=== PATIENT | male | born 1940 | race Caucasian/White ===

== ENCOUNTER 2017-05-06 13:24 | Emergency (ER) | payer OTHER ==
[~2017-05-06] VITALS: Ht 177.8 cm; Wt 79.4 kg
[2017-05-06 14:55] VITALS: BP 106/64
== END 2017-05-06 14:56 | disposition home or self-care (01) ==
LOC: ER 13:24
DX: S16.1XXA Strain of muscle, fascia and tendon at neck level, initial encounter (principal); K21.9 Gastro-esophageal reflux disease without esophagitis; E78.00 Pure hypercholesterolemia, unspecified; Z98.890 Other specified postprocedural states; V89.2XXA Person injured in unspecified motor-vehicle accident, traffic, initial encounter; Y93.89 Activity, other specified; Y92.411 Interstate highway as the place of occurrence of the external cause; Y99.8 Other external cause status

== ENCOUNTER 2019-06-10 12:56 | Day surgery (SDC) | payer OTHER ==
[2019-05-27 13:22] LABS: HEMATOCRIT 39.9 % (42.0-52.0); HEMOGLOBIN 13.3 gm/dL (14.0-18.0); MCH 32.4 pg (26.0-34.0); MCHC 33.3 g/dL (28.0-37.0); MCV 97.4 fL (80.0-100.0); RBC 4.09 mil/uL (4.50-6.00); RDW 13.8 % (10.5-14.5)
[2019-05-27 13:28] LABS: URINE BILIRUBIN NEGATIVE (Negative); URINE BLOOD TRACE (Negative); URINE CLARITY CLEAR; URINE COLOR YELLOW; URINE GLUCOSE-RANDOM* NEGATIVE (Negative); URINE KETONES NEGATIVE (Negative); URINE LEUKOCYTES-REFLEX NEGATIVE (Negative); URINE NITRITE-REFLEX NEGATIVE (Negative); URINE PROTEIN (DIPSTICK) NEGATIVE (Negative); URINE SPECIFIC GRAVITY <= 1.005 (1.005-1.035); URINE UROBILINOGEN 0.2 E.U./dl (0.2-1.0)
[2019-05-27 13:30] LABS: ALBUMIN 4.1 g/dL (3.4-5.0); CALCIUM 9.1 mg/dL (8.5-10.1); POTASSIUM 4.9 mmol/L (3.5-5.1)
[2019-05-27 13:39] LABS: INR 1.1
[~2019-06-10] VITALS: Ht 180.3 cm; Wt 76.7 kg
[~2019-06-10 12:56] MED LIST: BIOTIN10 MG PO; CELEBREX 200 M200 M1 PO; CIALIS5 MG PO; COZAAR 50 MG TA50 M1 PO; MELATONIN3 M1 PO; MULTIVITAMINS PO; PROBIOTIC1 EAC1 PO; PROTONIX40 M1 PO; RAPAFLO8 MG PO; REPATHA SY140 MG/1 M SUBQ; VITAMIN B-12500 MCG PO; VITAMIN E400 UNIT PO
[2019-06-10 14:23] VITALS: BP 135/52
[2019-06-10 18:40] VITALS: BP 138/60
--- NOTE | 2019-06-10 20:01 | NUR ---
PATIENT ARRIVED ON UNIT ROOM 447 FROM POST OP AT 1810. V.S. 97.3 17 65 138/60 O2 SAT = 97% ROOM AIR. DIET IS REGULAR PT GIVEN DINNER AND WATER IN PITCHER. PICCO DRESSING TO RIGHT KNEE HAS SCD'S AND TOYA HOSE IN PLACE. PT WGT = 169 LBS AND HEIGHT = 5'11". PT PLEASANT AND COOPERATIVE WITH CARE. NO RESP DISTRESS NO PAIN. AT BEDSIDE.
[2019-06-11 00:01] VITALS: BP 123/48
[2019-06-11 04:24] VITALS: BP 132/52
--- NOTE | 2019-06-11 04:55 | NUR ---
ASSUMED CARE OF PT @1900 PT ASSESSED AT START OF SHIFT A&OX4. ADM DONE AND CHARTED. PT ORIENTED TO THE ROOM. DRESSING INTACT AND ICE PACK IN PLACE. SCD'S ON FOR THE NIGHT. PAIN MEDS GIVEN FOR PAIN SEE EMAR. URINAL @BEDSIDE FOR THE NIGHT. FALL PREC IN PLACE AND CALL LIGHT WITHIN REACH WILL CONT WITH POC TILL EOS.
[2019-06-11 06:28] LABS: HEMATOCRIT 38.6 % (42.0-52.0); HEMOGLOBIN 12.9 gm/dL (14.0-18.0); MCH 32.5 pg (26.0-34.0); MCHC 33.3 g/dL (28.0-37.0); MCV 97.6 fL (80.0-100.0); RBC 3.96 mil/uL (4.50-6.00); RDW 13.4 % (10.5-14.5); WBC 9.6 thou/uL (4.0-11.0)
[2019-06-11] MEDS ORDERED: NEURONTIN 300300 M1 PO (08:22)
[2019-06-11] MEDS ORDERED: ASPIR 8181 MG PO (08:22)
[2019-06-11 10:56] VITALS: BP 132/52
--- NOTE | 2019-06-11 11:23 | NUR ---
Consult [id number] is completed. Patient and were in room. Patient is doing well and is very satisified with his procedure and his stay here. Patient was visited a little earlier by our Design Sales Consultant as patient is Sikhism.
--- NOTE | 2019-06-11 11:53 | NUR ---
DISCHARGE PAPERS GONE OVER WITH PATIENT,SIGNED AND COPY IN CHARGE. RX'S GIVEN IV ACSESS DCD. INFO ON POLAR PACK AND PICCO DRESSING GIVEN TO PATIENT SPOUSE IN ROOM. PT'S RIGHT KNEE DRESSING INTACT. ALL BELONGINGS PACKED AND SENT WITH PATIENT.
[2019-06-11 12:23] VITALS: BP 132/52
--- NOTE | 2019-06-11 13:37 | NUR ---
ASSESSMENT-PT LIVES AT HOME WITH HIS SPOUSE WHO IS IN GOOD HEALTH AND ABLE TO ASSIST HIM AT HOME. PT HAS A ROLLER WALKER AT HOME ALREADY. PT PLANS TO GO TO OUTPT THERAPY AT [facility] IN [place] AND HE PLANS TO CALL THEM TO SET-UP APPTS SOON HE GETS HOME. PT/ VOICE NO DC NEEDS AT THIS TIME. NO DC NEEDS ANTICIPATED.
--- NOTE | 2019-06-23 12:13 | O ---
[facility] [place] [address] OPERATIVE REPORT Name: SOCORRO RANGEL [place] [facility] [place] [id number] Admission: 06/10/19 Attend Phys: Regan Paulson MD Discharge: 06/11/19 Date of : 36 Report #: [id number] THIS REPORT FOR: //name// CC: Vaughn Paulson DATE OF SERVICE: 06/10/2019 PREOPERATIVE DIAGNOSIS: Right knee osteoarthritis. POSTOPERATIVE DIAGNOSIS: Right knee osteoarthritis. PROCEDURE: Right total knee arthroplasty using Navio robotic assistance. SURGEON: Regan Paulson M.D. INSIDE SALES PROFESSIONAL: Deann Randhawa PA-C. ANESTHESIA: LMA with an adductor canal block. INDICATIONS FOR INSIDE SALES PROFESSIONAL: Throughout the case, extensive retraction and manipulation of the knee was required. This was afforded by my personnel assistant. IMPLANTS: Maria and Nephew size 5, Legion cobalt chrome posterior stabilized femur, size 4 tibia, size 10 polyethylene and size 35 patella. TOURNIQUET TIME: 53 minutes. ESTIMATED BLOOD LOSS: 25 mL. COMPLICATIONS: None. SPECIMENS: None. CONDITION UPON LEAVING THE OPERATING ROOM: Stable. INDICATIONS FOR PROCEDURE: The patient is an 78-year-old gentleman with severe right knee osteoarthritis. He had failed conservative measures for this and after discussion with him, he elected for right total knee arthroplasty. DESCRIPTION OF PROCEDURE: Risks, benefits, alternatives, complications were discussed in detail with the patient including but not limited to risk of anesthesia, risk of damage to nerves, arteries, blood vessels, risk for infection, bleeding, risk for continued knee pain, need for reoperation. Informed consent was obtained from the patient. Right knee was appropriately marked in the preoperative holding area. IV Ancef was given for preoperative [facility] [address] [place] [address] OPERATIVE REPORT Name: SOCORRO RANGEL [place] #: [place] [facility] [place]#: [id number] Admission: 06/10/19 Attend Phys: Regan Paulson MD Discharge: 06/11/19 Date of : 36 Report #: [id number] antibiotics. He was brought to the operating room and placed in supine position on operating room table. LMA anesthesia was induced without complication. Tourniquet was placed on the right thigh. Right lower extremity was prepped and draped in normal sterile fashion. Timeout was performed properly identifying the patient and procedure as well as the instrumentation. All in the operating room were in agreement. Right lower extremity was exsanguinated, tourniquet was inflated. Tourniquet time was 53 minutes. Standard midline approach to knee was made with 10 blade through the skin. Dissection was taken down sharply to the fascia and deep flaps were developed medially and laterally. Fresh 10 blade was used to make a medial parapatellar arthrotomy and the knee was inspected. There was severe tricompartmental osteoarthritis. ACL and PCL were removed sharply. Reference pins were placed in the femur and the tibia and the knee was digitally mapped using the Navio robotic system. We sized a size 5 femur and a size 4 tibia with a size 11 polyethylene spacer. After acceptance of the intraoperative plan, the distal femoral cut was made with a Navio bur. The size 5, 4-in-1 cutting block was placed. Anterior, posterior and chamfer cuts were made on the femur. Attention was then turned to the tibia. The remainder of the menisci removed with Bovie cautery. Tibial resection guide was pinned in place using the Navio for placement and the tibial resection was made. After this, flexion and extension gaps were checked and found to have good balance in flexion and extension both medially and laterally. Tibia was sized, found to be a size 4. Size 4 tibial trial was placed, pinned and punched. Size 5 femoral trial was placed and the box cut was made. This was then trialed with a size 9 and then a size 10 polyethylene. The size 10 polyethylene demonstrated a millimeter of laxity medially and laterally throughout range of motion both digitally as well as manually. After this, 9 mm was resected from the posterior surface of the patella and a size 35 patellar trial button was placed. Knee was taken through range of motion, found to have good patellar tracking. Trial components were removed. Bony ends were thoroughly irrigated with normal saline. A final size ____ Legion cobalt chrome posterior stabilized femur and a size 35 patella were cemented in place using standard cementation techniques. While the cement cured, a periarticular injection consisting of morphine, ropivacaine, epinephrine and Toradol was placed around the knee joint capsule. After the cement cured, the tourniquet was deflated. Hemostasis was obtained with Bovie cautery. Final size 10 polyethylene was placed. A gram of vancomycin was placed deep in the joint. The fascia was closed with 0 Vicryl, skin was closed with 2-0 Vicryl, 3-0 Monocryl. Dermabond and a ALISHA dressing was applied. The patient tolerated this procedure well and went to recovery room under care of anesthesia postoperatively. <ELECTRONICALLY SIGNED> By: Regan Paulson MD 06/23/19 1213 [id number] 1823 Regan Paulson MD /nt
== END 2019-06-11 12:30 | disposition home or self-care (01) ==
LOC: OR 12:56 → PRE 13:02 → EDSTATUS 15:17 → OR 15:19 → 4S 18:20 → ENTRNSPT 06-11 12:10 → EDTRNSPTSTS 06-11 12:12 → OR 06-11 12:30
PROVIDERS: Orthopaedic Surgery
DX: M17.11 Unilateral primary osteoarthritis, right knee (principal); M25.561 Pain in right knee; I10 Essential (primary) hypertension; K21.9 Gastro-esophageal reflux disease without esophagitis; N40.0 Benign prostatic hyperplasia without lower urinary tract symptoms; Z98.41 Cataract extraction status, right eye; Z98.42 Cataract extraction status, left eye; Z79.899 Other long term (current) drug therapy; Z87.891 Personal history of nicotine dependence; Z98.890 Other specified postprocedural states; Z79.82 Long term (current) use of aspirin
CPT/HCPCS: 10102; 50010; 50101; 50415; 50954; 51130; 51225; 51320; 52001; 52282; 53000; 53078; 53364; 54118; 56527; 56528; 57095; 57103; 57110; 57127; 57179; 62110; 62900; 64043; 65060; 70005